=== PATIENT | female | born 1970 | race African-American/Black ===

== ENCOUNTER 2016-08-25 17:55 | Emergency (ER) | payer MEDICAID ==
[~2016-08-25] VITALS: Ht 167.6 cm; Wt 53.0 kg
[2016-08-25 23:31] LABS: EOSINOPHILS % 2.4 % (0.0-5.0); HEMATOCRIT. 35.8 % (36.0-48.0); HEMOGLOBIN. 11.5 g/dL (12.0-16.0); LYMPHOCYTES % 27.3 % (20.0-50.0); MEAN CORPUSCULAR HEMOGLOBIN 28.3 pg (28.0-32.0); MEAN CORPUSCULAR VOLUME 88.1 fL (81.0-99.0); MEAN PLATELET VOLUME 7.6 fl (7.4-10.4); MONOCYTES % 7.5 % (2.0-8.0); NEUTROPHILS % 61.8 % (40.0-76.0); PLATELET 315 x1000/uL (130-400); RED BLOOD CELL COUNT 4.07 mill/uL (4.2-5.4); RED CELL DISTRIBUTION WIDTH 28.6 % (11.6-14.6)
[2016-08-26 02:17] VITALS: BP 110/74
== END 2016-08-26 02:19 | disposition home or self-care (01) ==
LOC: ER 20:00
DX: D25.9 Leiomyoma of uterus, unspecified (principal); Z98.890 Other specified postprocedural states
CPT/HCPCS: 36415; 76830; 76856; 85025; 93005; 99285; Z7610

== ENCOUNTER 2021-02-19 07:58 | Emergency (ER) | payer MEDICAID, OTHER ==
[~2021-02-19] VITALS: Ht 167.6 cm; Wt 57.0 kg
[~2021-02-19 07:58] MED LIST: DOCU-138 MT; MIDO5TAB4 MT
[2021-02-19] MEDS ORDERED: FLUCONAZOLE 100MG TABLET PO ONE (08:30)
[2021-02-19] MEDS ORDERED: FLUCONAZOLE 150MG TABLET PO NR (09:00)
[2021-02-19 10:22] LABS: CLARITY URINE CLEAR (CLEAR); COLOR URINE YELLOW (YELLOW); KETONES URINE NEGATIVE (NEGATIVE); LEUKOCYTE ESTERASE URINE 2+ (NEGATIVE); NITRITE URINE NEGATIVE (NEGATIVE); OCCULT BLOOD URINE 2+ (NEGATIVE); PROTEIN URINE NEGATIVE (NEGATIVE); SPECIFIC GRAVITY URINE 1.013 (1.005-1.030); UROBILINOGEN URINE 0.2 E.U./dL (0.2-1.0)
[2021-02-19 10:24] LABS: UCG SCREEN NEGATIVE
[2021-02-19] MEDS ORDERED: CEPH500C2 MT (11:10)
[2021-02-19 11:15] VITALS: BP 115/75
== END 2021-02-19 11:16 | disposition home or self-care (01) ==
LOC: ER 07:58
DX: N39.0 Urinary tract infection, site not specified (principal); F20.9 Schizophrenia, unspecified; Z98.890 Other specified postprocedural states; Z79.899 Other long term (current) drug therapy
CPT/HCPCS: 81003; 81025; 99283

== ENCOUNTER 2021-02-21 10:57 | Emergency (ER) | payer MEDICAID ==
[~2021-02-21] VITALS: Ht 167.6 cm; Wt 57.0 kg
[~2021-02-21 10:57] MED LIST changes: +CEPH500C2 MT
[2021-02-21 11:06] VITALS: BP 98/68
[2021-02-21] MEDS ORDERED: BO1 TP (12:31)
== END 2021-02-21 12:43 | disposition home or self-care (01) ==
LOC: ER 10:57
DX: R21 Rash and other nonspecific skin eruption (principal); K76.9 Liver disease, unspecified; F20.9 Schizophrenia, unspecified; Z98.890 Other specified postprocedural states
CPT/HCPCS: 99283

== ENCOUNTER 2021-02-25 07:16 | Emergency (ER) | payer MEDICAID, OTHER ==
[~2021-02-25] VITALS: Ht 167.6 cm; Wt 59.0 kg
[~2021-02-25 07:16] MED LIST changes: +BO1 TP
[2021-02-25 07:35] VITALS: BP 95/61
== END 2021-02-25 12:19 | disposition home or self-care (01) ==
LOC: ER 07:16
DX: D25.9 Leiomyoma of uterus, unspecified (principal); R21 Rash and other nonspecific skin eruption
CPT/HCPCS: 99281

== ENCOUNTER 2021-03-08 16:31 | Emergency (ER) | payer MEDICAID, OTHER ==
[~2021-03-08] VITALS: Ht 167.6 cm; Wt 57.0 kg
[2021-03-08 19:14] LABS: CLARITY URINE CLEAR (CLEAR); COLOR URINE YELLOW (YELLOW); KETONES URINE TRACE (NEGATIVE); LEUKOCYTE ESTERASE URINE TRACE (NEGATIVE); NITRITE URINE NEGATIVE (NEGATIVE); OCCULT BLOOD URINE 2+ (NEGATIVE); PROTEIN URINE TRACE (NEGATIVE); SPECIFIC GRAVITY URINE 1.028 (1.005-1.030); UROBILINOGEN URINE 0.2 E.U./dL (0.2-1.0)
[2021-03-08 19:26] LABS: UCG SCREEN NEGATIVE
[2021-03-08] MEDS ORDERED: DOXY150T5 MT (21:19)
[2021-03-08] MEDS ORDERED: METR-167 MT (21:19)
[2021-03-08] MEDS ORDERED: DOXYCYCLINE HYCLATE 100MG CAPSULE PO ONE (21:30)
[2021-03-08] MEDS ORDERED: LIDOCAINE HCL 1% 20ML VIAL (Pyxis) INJ INFIL ONE (21:30)
[2021-03-08] MEDS ORDERED: CEFTRIAXONE SODIUM 500 MG/VIAL IM ONE (21:30)
[2021-03-08] MEDS ORDERED: METRONIDAZOLE 500MG TABLET PO ONE (21:30)
[2021-03-08] MEDS ORDERED: BO1 TP (21:39)
[2021-03-08 21:48] VITALS: BP 120/80
[2021-03-12 04:07] LABS: NEISSERIA GONORRHOEAE NAA Negative (Negative)
== END 2021-03-08 21:50 | disposition home or self-care (01) ==
LOC: ER 16:31
DX: N76.0 Acute vaginitis (principal); Z98.890 Other specified postprocedural states; Z86.59 Personal history of other mental and behavioral disorders
CPT/HCPCS: 76830; 76856; 81003; 81025; 87210; 87491; 87591; 96372; 99284; J0696; J3490; Z7610

== ENCOUNTER 2021-03-16 14:00 | Emergency (ER) | payer MEDICAID ==
[~2021-03-16] VITALS: Ht 167.6 cm; Wt 59.0 kg
[~2021-03-16 14:00] MED LIST changes: +DOXY150T5 MT; +METR-167 MT
[2021-03-16 14:03] VITALS: BP 122/77
[2021-03-16] MEDS ORDERED: TRIA30CR TP (15:01)
== END 2021-03-16 15:16 | disposition home or self-care (01) ==
LOC: ER 14:12
DX: L98.1 Factitial dermatitis (principal); F20.9 Schizophrenia, unspecified
CPT/HCPCS: 99283

== ENCOUNTER 2021-03-21 13:24 | Emergency (ER) | payer MEDICAID ==
[~2021-03-21] VITALS: Ht 167.6 cm; Wt 65.0 kg
[~2021-03-21 13:24] MED LIST changes: +TRIA30CR TP
[2021-03-21 14:12] LABS: CLARITY URINE CLOUDY (CLEAR); COLOR URINE YELLOW (YELLOW); KETONES URINE TRACE (NEGATIVE); LEUKOCYTE ESTERASE URINE 2+ (NEGATIVE); NITRITE URINE NEGATIVE (NEGATIVE); OCCULT BLOOD URINE 1+ (NEGATIVE); PROTEIN URINE NEGATIVE (NEGATIVE); UROBILINOGEN URINE 0.2 E.U./dL (0.2-1.0)
[2021-03-21 14:21] LABS: *AMPHETAMINES SCREEN URINE NEGATIVE (NEGATIVE); *BARBITURATES SCREEN URINE NEGATIVE (NEGATIVE); *BENZODIAZEPINES SCREEN URINE NEGATIVE (NEGATIVE); *COCAINE SCREEN URINE NEGATIVE (NEGATIVE); METHADONE URINE SCREEN NEGATIVE (NEGATIVE)
[2021-03-21 14:22] LABS: CANNABINOID URINE SCREEN NEGATIVE (NEGATIVE); OPIATES URINE SCREEN NEGATIVE (NEGATIVE); PHENCYCLIDINE URINE SCREEN NEGATIVE (NEGATIVE)
[2021-03-21 14:34] LABS: BASOPHILS % 0.6 % (0.0-2.0); EOSINOPHILS % 1.2 % (0.0-5.0); HEMATOCRIT. 36.2 % (36.0-48.0); HEMOGLOBIN. 11.6 g/dL (12.0-16.0); LYMPHOCYTES % 14.6 % (20.0-50.0); MEAN CORPUSCULAR HEMOGLOBIN 28.8 pg (28.0-32.0); MEAN PLATELET VOLUME 8.7 fl (7.4-10.4); MONOCYTES % 7.8 % (2.0-8.0); NEUTROPHILS % 75.8 % (40.0-76.0); PLATELET 352 x1000/uL (130-400); RED BLOOD CELL COUNT 4.02 mill/uL (4.2-5.4); RED CELL DISTRIBUTION WIDTH 18.2 % (11.6-14.6)
[2021-03-21 14:45] LABS: CHLORIDE 110 mEq/L (98-107)
[2021-03-21 14:49] LABS: ETHANOL BLOOD < 10 mg/dL
[2021-03-21 14:52] LABS: HCG SCREEN NEGATIVE
[2021-03-21] MEDS ORDERED: LORAZEPAM 2MG/ML CPJ IV ONE (15:00)
[2021-03-21] MEDS ORDERED: HALOPERIDOL LACTATE 5MG/ML VIAL IM ONE (15:00)
[2021-03-21] MEDS ORDERED: DIPHENHYDRAMINE 50MG/ML VIAL IV ONE (15:00)
[2021-03-21] MEDS ORDERED: CEFTRIAXONE 1 G PREMIX 50 ML IV NR (20:19)
[2021-03-22] MEDS: HALOPERIDOL 5MG TABLET PO SCH ×2 (10:04→17:00)
[2021-03-22] MEDS: BENZTROPINE MESYLATE 0.5MG TABLET PO SCH ×2 (10:04→22:40)
[2021-03-22] MEDS ORDERED: LORAZEPAM 1MG TABLET PO ONE (11:00)
[2021-03-23] MEDS: BENZTROPINE MESYLATE 0.5MG TABLET PO SCH ×2 (08:40→20:47)
[2021-03-23] MEDS: HALOPERIDOL 5MG TABLET PO SCH ×2 (08:40→17:05)
[2021-03-23] MEDS ORDERED: LORAZEPAM 2MG/ML CPJ IM ONE (12:15)
[2021-03-24] MEDS: HALOPERIDOL 5MG TABLET PO SCH ×2 (09:39→17:00)
[2021-03-24] MEDS: BENZTROPINE MESYLATE 0.5MG TABLET PO SCH (09:40)
[2021-03-24] MEDS ORDERED: LORAZEPAM 2MG/ML CPJ IM PRN (13:00)
[2021-03-24] MEDS ORDERED: LORAZEPAM 2MG/ML CPJ IV PRN (13:00)
[2021-03-24 20:20] VITALS: BP 108/72
== END 2021-03-24 21:17 ==
LOC: ER 13:24
DX: F23 Brief psychotic disorder (principal); R26.9 Unspecified abnormalities of gait and mobility; F31.9 Bipolar disorder, unspecified; K76.9 Liver disease, unspecified; Z20.822 Contact with and (suspected) exposure to COVID-19; Z98.890 Other specified postprocedural states; Z86.011 Personal history of benign neoplasm of the brain; Z75.1 Person awaiting admission to adequate facility elsewhere
CPT/HCPCS: 36415; 70450; 80053; 80305; 80320; 81003; 82962; 84443; 84703; 85025; 87086; 96365; 96372; 96375; 99291; J0696; J1200; J1630; J2060; U0003; G0480

== ENCOUNTER 2021-04-28 14:00 | Emergency (ER) | payer MEDICAID, OTHER ==
[~2021-04-28] VITALS: Ht 165.1 cm; Wt 59.0 kg
[2021-04-28 15:30] LABS: CLARITY URINE CLEAR (CLEAR); COLOR URINE YELLOW (YELLOW); KETONES URINE 1+ (NEGATIVE); LEUKOCYTE ESTERASE URINE 2+ (NEGATIVE); NITRITE URINE NEGATIVE (NEGATIVE); OCCULT BLOOD URINE 2+ (NEGATIVE); PH URINE 5.5 (4.5-8.0); PROTEIN URINE 1+ (NEGATIVE); SPECIFIC GRAVITY URINE 1.021 (1.005-1.030); UROBILINOGEN URINE 0.2 E.U./dL (0.2-1.0)
[2021-04-28] MEDS ORDERED: CEPH500C2 MT (21:31)
[2021-04-28] MEDS ORDERED: HALO5TAB MT (21:58)
[2021-04-28] MEDS ORDERED: HALOPERIDOL 5MG TABLET PO ONE (22:00)
[2021-04-28 22:20] VITALS: BP 16/82
== END 2021-04-28 22:28 | disposition home or self-care (01) ==
LOC: ER 14:00
DX: N39.0 Urinary tract infection, site not specified (principal); F20.9 Schizophrenia, unspecified; Z98.890 Other specified postprocedural states; Z79.899 Other long term (current) drug therapy
CPT/HCPCS: 81003; 99283; J1630